=== PATIENT | female | born 1960 | race Caucasian/White ===

== ENCOUNTER 2017-05-08 08:03 | Emergency (ER) | payer BC ==
[2017-05-08 08:21] VITALS: BP 120/81
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
--- NOTE | 2017-05-08 09:12 | RAD ---
HISTORY: Left leg swelling and edema TECHNIQUE: Multiple transverse and longitudinal ultrasound images were obtained of the veins of the left lower extremity using grayscale, color Doppler, and spectral Doppler imaging with and without compression and with augmentation. FINDINGS: VEINS: The common femoral vein, deep femoral vein, femoral vein and popliteal vein are compressible throughout their course, with normal flow on color Doppler imaging and normal response to augmentation on spectral Doppler imaging. SOFT TISSUES: Grossly normal. No large popliteal fossa cyst was identified. IMPRESSION: No sonographic evidence of deep vein thrombosis.
--- NOTE | 2017-05-08 09:43 | RAD ---
Indication: 4 days cramping LEFT knee pain. Bruising anterior to the mid tibia fibular region. Comparison: No relevant prior exams available on the [facility] PACS for comparison. Technique: LEFT knee: AP, tunnel, lateral, sunrise views. Report: Bone density appears decreased throughout. No acute fracture evident. Partially visualized cortical and medullary osseous irregularity at the proximal diaphysis of the tibia while most suggestive of sequela of a healed fracture with previous tracks from internal fixation hardware is not entirely specific and incompletely assessed on dedicated knee radiographic series. Osteophytosis and advanced medial lateral joint space narrowing as well as chondrocalcinosis. Associated partial flattening of the articular surfaces. Negative for knee joint effusion or articular malalignment. Mild anterior soft tissue swelling at the proximal lower leg. IMPRESSION: 1. Correlate with clinical assessment and consider dedicated radiographs of the lower leg for further assessment. 2. Kellgren and Anthony grade 3 osteoarthritis.
== END 2017-05-08 10:12 | disposition home or self-care (01) ==
LOC: UCCORT 08:03
DX: M25.562 Pain in left knee (principal); F17.210 Nicotine dependence, cigarettes, uncomplicated
CPT/HCPCS: 99212; G0463

== ENCOUNTER 2017-11-27 15:12 | Emergency (ER) | payer BC ==
[2017-11-27 15:33] VITALS: BP 120/82
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
== END 2017-11-27 16:24 | disposition home or self-care (01) ==
LOC: UCCORT 15:12
DX: R21 Rash and other nonspecific skin eruption (principal); F17.210 Nicotine dependence, cigarettes, uncomplicated
CPT/HCPCS: 99212; G0463

== ENCOUNTER 2018-03-13 17:57 | Emergency (ER) | payer BC ==
[2018-03-13 19:08] VITALS: BP 120/76
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
== END 2018-03-13 19:35 | disposition home or self-care (01) ==
LOC: UCCORT 17:57
DX: N76.4 Abscess of vulva (principal); F17.210 Nicotine dependence, cigarettes, uncomplicated
CPT/HCPCS: 87070; 87205; 99212; G0463

== ENCOUNTER 2018-09-11 18:22 | Emergency (ER) | payer BC ==
--- OUTSIDE RECORDS SUMMARY | 2018-09-11 20:02 | XMS REPORT ---
:1960 Author Care Team Providers Name Role Phone Unavailable Unavailable Unavailable Problems This patient has no known problems. Allergies, Adverse Reactions, Alerts This patient has no known allergies or adverse reactions. Social History Smoking Status Start Date Stop Date Unknown if ever smoked Social History Observation Description Sex Female Medications This patient has no known medications. Vital Signs This patient has no known vital signs. Procedures This patient has no known procedures. Reason for Referral This patient has no known reason for referral. Chief Complaint and Reason for Visit This patient event has no chief complaint or reason for visit specified. Results This patient has no known results. Assessments This patient has no known assessments.
[2018-09-11 20:10] VITALS: BP 119/63
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
[2018-09-11 20:27] LABS: Influenza A Molecular POSITIVE (Negative)
[2018-09-11] MEDS ORDERED: Oseltamivir CAP* 75 MG CAP PO ONE (21:08)
== END 2018-09-11 21:27 | disposition home or self-care (01) ==
LOC: UCCORT 18:22
DX: J10.1 Influenza due to other identified influenza virus with other respiratory manifestations (principal); F17.210 Nicotine dependence, cigarettes, uncomplicated; Z87.01 Personal history of pneumonia (recurrent)
CPT/HCPCS: 71046; 99212; A9270-GY; G0463